=== PATIENT | male | born 1965 | race Caucasian/White ===

== ENCOUNTER 2018-07-17 12:24 | Day surgery (SDC) | payer BC ==
[~2018-07-17] VITALS: Ht 182.9 cm; Wt 99.8 kg
[2018-07-17 12:42] VITALS: BP 120/92; PULSE 69; TEMP 97.5
[2018-07-17] MEDS ORDERED: ZYRTEC 10MG10 MG PO (12:45)
[2018-07-17] MEDS ORDERED: MASON NATURAL1200 MG PO (12:46)
[2018-07-17] MEDS ORDERED: FLAXSEED OIL1000 MG PO (12:46)
[2018-07-17] MEDS ORDERED: MULTIPLE VITAMI1 CAP PO (12:47)
[2018-07-17] MEDS ORDERED: VITAMINC1000TA PO (12:47)
[2018-07-17] MEDS ORDERED: ED A HIST PO (12:48)
[2018-07-17] MEDS ORDERED: NIGHT TIME COL355 M1 PO (12:49)
[2018-07-17 14:00] VITALS: BP 119/84; PULSE 62; TEMP 97.7
--- NOTE | 2018-07-17 14:00 | NUR ---
TO BAY 3 PER CART FROM ENDOSCOPY. AMBULATED TO RECLINER AND TOLERATED WELL. ALERT ORIENTED X3, TALKING TO AND NURSING STAFF. RECEIVED MUFFIN AND CRANBERRY JUICE.
[2018-07-17 14:15] VITALS: BP 120/90; PULSE 55
--- NOTE | 2018-07-17 14:15 | NUR ---
ATE 100% AND TOLERATED WELL
[2018-07-17 14:30] VITALS: BP 117/87; PULSE 56
--- NOTE | 2018-07-17 14:30 | NUR ---
DR HERNANDEZ INTO TALK WITH PATIENT AND HIS .
--- NOTE | 2018-07-17 14:50 | NUR ---
DISCONTINED IV AND INT- CATHETER INTACT RECEIVED DISCHARGE INSTRUCTIONS AND VERBALIZED UNDERSTANDING. PATIENT GETTING DRESSED
--- NOTE | 2018-07-17 15:00 | NUR ---
DISCHARGED PER WC BY NURSING STAFF TO PRIVATE CAR IN CARE OF -SOO
== END 2018-07-17 15:15 | disposition home or self-care (01) ==
LOC: SDCO 12:24
DX: Z12.11 Encounter for screening for malignant neoplasm of colon (principal); K63.5 Polyp of colon; E78.00 Pure hypercholesterolemia, unspecified; Z88.0 Allergy status to penicillin
CPT/HCPCS: J2250; J3010; J7030